=== PATIENT | female | born 1985 | race Caucasian/White ===

== ENCOUNTER → 2018-04-24 | Outpatient (CLI) | payer BC ==
[~2018-04-24] MED LIST: IOHEXOL 300 MG/ML 75 ML VIAL. IV ONE
--- NOTE | 2018-04-24 17:26 | RAD ---
PQRS Compliance statement: One or more of the following individualized dose reduction techniques were utilized for this examination: 1. Automated exposure control. 2. Adjustment of the mA and/or kV according to patient size. 3. Use of iterative reconstruction technique. Indication:SHORTNESS OF BREATH, RECENT TRAVEL, BLOOD CLOTTING DISORDER. 75MLS OMNI 300 IV CONTRAST TECHNIQUE: CT angiogram of the chest with IV contrast with multiplanar MIP reformats. COMPARISON:None FINDINGS: Bilateral breast implants. Clear neck base. Suboptimal PE study due to contrast bolus timing. Most of the contrast is in the left subclavian artery. No large central embolus. Evaluation of segmental and subsegmental pulmonary arteries is limited. Heart is normal in size. No pericardial or pleural effusion. No enlarged axillary, mediastinal or hilar adenopathy. Central airways are patent. 3 mm nodule in the right upper lobe (series 4 image 33). Subpleural nodule in the right lower lobe measuring 4 mm (series 4 image 94). 5 mm nodule in the subpleural left lower lobe (series 4 image 90). The visualized sections through the liver, spleen, gallbladder, pancreas, adrenals and kidneys within normal limits. No suspicious bony lesion. IMPRESSION: 1. Suboptimal PE study due to contrast bolus timing. No large central embolus. Evaluation of segmental and subsegmental pulmonary arteries is limited. Consider nuclear medicine VQ scan or DVT study. 2. Multiple bilateral pulmonary nodules/nodular opacities, nonspecific. Follow-up CT chest in 6-12 months recommended. Electronically signed by: Juno Brock DO (04/24/2018 5:23 PM) [facility]
== END | disposition home or self-care (01) ==
LOC: CT 16:32
PROVIDERS: ATTEND Family Medicine
DX: R06.02 Shortness of breath (principal); D68.9 Coagulation defect, unspecified
CPT/HCPCS: 71275; Q9967

== ENCOUNTER → 2019-01-08 | Outpatient (CLI) | payer BC ==
[~2019-01-08] MED LIST changes: -IOHEXOL 300 MG/ML 75 ML VIAL. IV ONE; +IOHEXOL 350 MG/ML 100 ML VIAL. IV ONE
--- NOTE | 2019-01-08 10:44 | RAD ---
CT CHEST WO CONTRAST Indication: Lung nodule Technique: Noncontrast CT imaging was performed of the chest, multiplanar reconstruction images submitted. One or more of the following individualized dose reduction techniques were utilized for this examination: 1. Automated exposure control 2. Adjustment of the mA and/or kV according to patient size 3. Use of iterative reconstruction technique. Comparison: April 24, 2018 Findings: Left lower lobe nodule image 62 series 2 about 0.4 cm is stable. 0.2 cm subpleural left lower lobe nodule image 55 series 2 and also 0.2 cm subpleural left lower lobe nodule image 43 series 2 are stable. 0.2 cm left upper lobe nodule image 28 series 2 is stable. 0.2 cm subpleural right lower lobe nodule image 33 series 2 and 0.4 cm subpleural right lower lobe nodule image 65 are stable. 0.8 cm focus of subpleural right lower lobe density image 50 series 2 is stable. 0.3 cm right upper lobe nodule image 23 series 2 is stable. 0.2 cm right middle lobe nodule image 57 is stable. There is no new pulmonary nodularity, pleural or pericardial effusion, infiltrate, or pneumothorax. Thoracic aortic caliber is within normal limits. There is no new significant lymphadenopathy of the chest. There are bilateral breast implants as seen previously. IMPRESSION: 1. There are stable noncalcified bilateral pulmonary nodules, largest subpleural nodule right lower lobe about 0.8 cm. There is no new pulmonary nodularity or infiltrate. 18-24 month follow-up could be performed as per revised Fleischner guidelines although clinical significance of nodules less likely in a patient of this age. Electronically signed by: Damir Kincaid MD (01/08/2019 10:41 AM) [id number]
== END | disposition home or self-care (01) ==
LOC: CT 09:14
PROVIDERS: ATTEND Physician Assistant
DX: R91.8 Other nonspecific abnormal finding of lung field (principal); Z98.82 Breast implant status
CPT/HCPCS: 71250